=== PATIENT | male | born 1970 | race Caucasian/White ===

== ENCOUNTER 2025-01-19 05:00 | Outpatient (RCR) | payer MEDICARE, OTHER, SELFPAY | END 2025-02-17 23:59 | disposition home or self-care (01) | LOC: GPT 05:00 | PROVIDERS: Visit Provider Nurse Practitioner Family | DX: M54.50 Low back pain, unspecified (principal) | CPT/HCPCS: 97110; 97112; 97140; 97162 ==

== ENCOUNTER 2025-02-18 05:00 | Outpatient (RCR) | payer MEDICARE, OTHER, SELFPAY | END 2025-03-16 12:35 | disposition home or self-care (01) | LOC: GPT 05:00 | PROVIDERS: Visit Provider Nurse Practitioner Family | DX: M54.50 Low back pain, unspecified (principal) | CPT/HCPCS: 97110; 97112; 97140 ==